=== PATIENT | female | born 1960 | race Caucasian/White ===

== ENCOUNTER 2019-04-25 07:41 | Day surgery (SDC) | payer OTHER ==
[2019-04-25] MEDS: LACTATED RINGER'S 1,000 ML IV (09:00)
[2019-04-25] MEDS ORDERED: ROCURONIUM 50 MG INJ (09:11)
[2019-04-25] MEDS ORDERED: NEOSTIGMINE 3 MG/3 ML SYRINGE (09:11)
[2019-04-25] MEDS ORDERED: LIDOCAINE 2% (SDV) 5 ML INJ (09:11)
[2019-04-25] MEDS ORDERED: SUCCINYLCHOLINE CHLORIDE 100 MG/5 ML SYG IV (09:11)
[2019-04-25] MEDS ORDERED: GLYCOPYRROLATE 0.4 MG INJ ×2 (09:11→12:10)
[2019-04-25] MEDS ORDERED: PROPOFOL 20 ML (09:11)
[2019-04-25] MEDS ORDERED: ROPIVACAINE 0.5 % 30 ML VIAL (09:12)
[2019-04-25] MEDS ORDERED: ONDANSETRON 4 MG INJ (09:12)
[2019-04-25] MEDS ORDERED: CEFAZOLIN 1 GM INJ (09:12)
[2019-04-25] MEDS ORDERED: METOCLOPRAMIDE 10 MG INJ (09:13)
[2019-04-25] MEDS ORDERED: MIDAZOLAM 1 MG/ML 2 ML INJ (09:24)
[2019-04-25] MEDS ORDERED: METOCLOPRAMIDE 10 MG INJ IV (12:00)
[2019-04-25] MEDS ORDERED: DIPHENHYDRAMINE 50 MG INJ IV (12:00)
[2019-04-25] MEDS ORDERED: LABETALOL HCL 20MG INJ IV (12:00)
[2019-04-25] MEDS ORDERED: MIDAZOLAM 1 MG/ML 2 ML INJ IV (12:00)
[2019-04-25] MEDS ORDERED: EPHEDrine 25 MG/5 ML SYG IV (12:00)
[2019-04-25] MEDS ORDERED: FENTAnyl 50 MCG/ML VIAL IV ×3 (12:00)
[2019-04-25] MEDS ORDERED: hydrALAzine 20 MG INJ IV (12:00)
[2019-04-25] MEDS ORDERED: SOD CHLORIDE 0.9% 1,000 ML IV (12:28)
[2019-04-25] MEDS ORDERED: ONDANSETRON 4 MG INJ IV (12:30)
[2019-04-25] MEDS ORDERED: OXYCODONE/ACETAMINOPHEN (5/325) TAB PO ×2 (12:30)
[2019-04-25] MEDS: MEPERIDINE 25 MG INJ IV (13:07)
[2019-04-25] MEDS: ONDANSETRON 4 MG INJ IV (13:08)
== END 2019-04-25 15:11 | disposition home or self-care (01) ==
LOC: SDS 07:41
DX: M25.811 Other specified joint disorders, right shoulder (principal); M75.101 Unspecified rotator cuff tear or rupture of right shoulder, not specified as traumatic; M65.811 Other synovitis and tenosynovitis, right shoulder; M94.211 Chondromalacia, right shoulder; I10 Essential (primary) hypertension; E03.9 Hypothyroidism, unspecified
CPT/HCPCS: 29823